=== PATIENT | male | born 1980 | race African-American/Black ===

== ENCOUNTER 2019-12-03 13:43 | Inpatient (IN) | payer OTHER ==
[~2019-12-03] VITALS: Ht 172.7 cm; Wt 63.6 kg
--- NOTE | 2019-12-03 13:55 | NUR ---
PATIENT TO ROOM VIA WHEELCHAIR WITH GUARDS AND PHHYSICIAN AT BEDSIDE FOR EVAL
--- NOTE | 2019-12-03 14:30 | NUR ---
PATIENT HARD STICK. ONLY ABLE TO OBTAIN 1 BLOOD CULTURE. MD NOTIFIED AND IS OK WITH HAVING 1 BLOOD CULTURE.
[2019-12-03 14:46] LABS: HEMATOCRIT 48.7 % (39.0-50.0); HEMOGLOBIN 15.3 g/dl (14.0-18.0); IMMATURE GRANULOCYTES 0.3 % (0.0-5.0); MEAN CELL VOLUME 84.5 fL CALC (80.0-100.0); MEAN CORPUSCULAR HGB 26.6 pG CALC (26.0-32.0); MEAN CORPUSCULAR HGB CONC 31.4 g/dL CAL (32.0-36.0); NEUT# 7.5 thou/uL (1.82-7.42); RED BLOOD COUNT 5.76 mill/uL (4.70-6.10); RED CELL DISTRI WIDTH 12.8 % (11.5-15.5)
[2019-12-03 15:06] LABS: ALBUMIN 4.2 g/dL (3.2-5.0); ALKALINE PHOSPHATASE 71 u/l (38-126); ANION GAP 18 (6-22 (CALC)); BILIRUBIN, TOTAL 0.5 mg/dL (0.0-1.4); BUN 24 mg/dL (9-20); BUN/CREATININE RATIO 24 (12-20 (CALC)); CARBON DIOXIDE 22 mmol/l (22-30); CHLORIDE 98 mmol/l (95-108); GFR > 60 ML/MIN (>=60 (CALC)); GFR FOR AFR.AMER. > 60 ML/MIN (>=60 (CALC)); POTASSIUM 3.9 mmol/l (3.5-5.1); SGOT/AST 38 u/l (17-59); SODIUM 133 mmol/l (137-146); TOTAL PROTEIN 7.8 g/dL (6.3-8.2)
--- NOTE | 2019-12-03 15:20 | NUR ---
IV ANTIBIOTICS INFUSING. IV SITE FREE FROM REDNESS/EDEMA. PATIENT UPDATED ON POSSIBLE ADMISSION. 2 GUARDS REMAIN AT BEDSIDE.
[2019-12-03] MEDS ORDERED: DOXYCYCL HYC100 MG PO (15:23)
[2019-12-03] MEDS ORDERED: KEFLEX500 MG PO (15:23)
[2019-12-03] MEDS ORDERED: IBUPROFEN600 MG PO (15:24)
[2019-12-03] MEDS ORDERED: HYDROCHLOROT25 MG PO (15:24)
[2019-12-03] MEDS ORDERED: ASPIRIN ADULT L81 M2 PO (15:24)
[2019-12-03] MEDS ORDERED: LISINOPRIL10 MG PO (15:24)
--- NOTE | 2019-12-03 16:10 | NUR ---
PATIENT REPORT ATTEMPTED TO CALL TO [facility] NURSE, THEY WILL CALL BACK.
--- NOTE | 2019-12-03 16:24 | NUR ---
PATIENT REPORT CALLED TO FANTA [facility]Y.
--- NOTE | 2019-12-03 16:25 | NUR ---
REPORT RECEIVED FROM NAVNEET TRAORE
--- NOTE | 2019-12-03 16:30 | NUR ---
COVID SWAB COLLECTED.
--- NOTE | 2019-12-03 16:35 | NUR ---
Admission Note Report Given to: MARCOS Transported by: X Wheelchair Stretcher Transported with: X Nurse Transporter X [employer] Location: ICU X MS2 PATIENT TO ROOM IN STABLE CONDITION.
--- NOTE | 2019-12-03 16:37 | NUR ---
PT ARRIVED TO MED/SURG ROOM 283 IN STABLE CONDITION VIA WHEELCHAIR ACCOMPANIED BY NAVNEET TRAORE AND X2 GUARDS;PT AMBULATED TO BEDSIDE WITH A WEAK GAIT AND 1 PERSON ASSIST;WT AND VS OBTAINED BY RUT RAMOS;PT REPORTS RLE EDEMA AND REDDENING SINCE Friday11/30/19;PT REPORTS RLE PAIN RATING 2/10 ON THE PAIN SCALE,PT TO BE MEDICATED WITH PRN TYLENOL 650MG PO;PT A&O X3, ORIENTED TO ROOM AND CALL LIGHT SYSTEM;RESPIRATIONS EVEN AND UNLABORED ON RA,CLEAR LUNG SOUNDS;PT TESTED POSITIVE FOR COVID19, PT EDUCATED ON RESULTS AND PLACED IN AIR/CONTACT PRECAUTIONS;ABDOMEN SOFT ON PALPATION AND ACTIVE IN ALL 4 QUADRANTS,LAST BM 12/02/19;STRONG LEFT PEDAL PULSE AND DOPPLERED RT PEDAL PULSE;RLE SWOLLEN WITH +3 EDEMA,REDDENING, AND WARM TO TOUCH;RLE PHOTO OBTAINED AND ELEVATED ON A PILLOW;#22G TO RIGHT HAND FLUSHED AND PATENT,SITE APPEARS HEALTHY;ALLERGY BAND APPLIED;PT DENIES ANY ADDITIONAL NEEDS AT THIS TIME AND IS ENCOURAGED TO CALL FOR ASSISTANCE IF NEEDED;FALL PRECAUTIONS IN PLACE WITH BED IN THE LOWEST POSITION AND CALL LIGHT IN REACH;WILL CONTINUE TO MONITOR
[2019-12-03 16:51] VITALS: BP 151/87
[2019-12-03 19:00] VITALS: BP 133/72
--- NOTE | 2019-12-03 21:14 | NUR ---
PT MEDICATED ORDERS PROVIDE AND ASSESSMENT COMPLETED AT THIS TIME. NO S/O DISTRESS NOTED. PT UP MOVING AROUND ROOM, STEADY GAIT. PT PROVIDED COFFEE PER REQUEST.
--- NOTE | 2019-12-04 00:16 | NUR ---
PT IN BED W/EYES CLOSED I ENTERED THE ROOM, GUARDS X2 AT BEDSIDE. NO S/O DISTRESS. IV ANTIBIOTIC ADMINISTERED AT THIS TIME AND TYLENOL FOR PAIN 06/17. PT DENIES ANY OTHER NEEDS. LIGHTS ARE OFF AND TV DOWN LOW.
--- NOTE | 2019-12-04 01:19 | NUR ---
PT UP WALKING AROUND ROOM AND BACK TO BED. NO S/O DISTRESS NOTED. CALL LIGHT AT SIDE.
--- NOTE | 2019-12-04 03:00 | NUR ---
Pt sleeping, no s/o distress noted. Guards @bedside x2.
[2019-12-04 04:00] VITALS: BP 134/73
[2019-12-04 05:48] LABS: IMMATURE GRANULOCYTES 0.3 % (0.0-5.0); MEAN CELL VOLUME 82.9 fL CALC (80.0-100.0); MEAN CORPUSCULAR HGB 26.6 pG CALC (26.0-32.0); MEAN CORPUSCULAR HGB CONC 32.1 g/dL CAL (32.0-36.0); NEUT# 6.11 thou/uL (1.82-7.42); RED BLOOD COUNT 4.92 mill/uL (4.70-6.10); RED CELL DISTRI WIDTH 12.9 % (11.5-15.5)
[2019-12-04 06:00] LABS: HEMATOCRIT 40.8 % (39.0-50.0); HEMOGLOBIN 13.1 g/dl (14.0-18.0)
[2019-12-04 06:09] LABS: BUN 17 mg/dL (9-20); BUN/CREATININE RATIO 18 (12-20 (CALC)); CHLORIDE 99 mmol/l (95-108); CREATININE 0.9 mg/dL (0.7-1.3); GFR > 60 ML/MIN (>=60 (CALC)); GFR FOR AFR.AMER. > 60 ML/MIN (>=60 (CALC)); POTASSIUM 3.8 mmol/l (3.5-5.1); SODIUM 134 mmol/l (137-146)
[2019-12-04 06:16] LABS: ANION GAP 12 (6-22 (CALC)); CARBON DIOXIDE 27 mmol/l (22-30)
[2019-12-04 08:01] VITALS: BP 118/75
--- NOTE | 2019-12-04 10:07 | NUR ---
PATIENT RESTING WITH TWO GUARDS AT BEDSIDE. PATIENT STATES PAIN IN LEG IN MINIMAL. REDNESS APPEARS TO BE GOING DOWN.
--- NOTE | 2019-12-04 12:28 | NUR ---
PATIENT RESTING IN BED WITH TWO GUARDS AT BEDSIDE. PATIENT HAS NO CONCERNS OR QUESTIONS AT THIS TIME. IV ABX GIVEN,
[2019-12-04 15:17] VITALS: BP 116/70
--- NOTE | 2019-12-04 16:02 | NUR ---
PATIENT RESTING WITH TWO GUARDS AT BEDSIDE. PATIENT SHOWERED AND COMFORTABLE AT THIS TIME. WILL REASSESS.
--- NOTE | 2019-12-04 18:07 | NUR ---
PATIENT RECIEVED DOSE OF IV ABX. PATIENT RT FOOT IS LESS SWOLLEN AND SKIN IS PEELING. PATIENT WAS CONCERNED THAT IT LOOKED DIFFERENT. NURSE EXPLAINED EDEMA AND THE HEALING PROCESS. PATIENT VERBALIZED UNDERSTANDING.
[2019-12-04 19:00] VITALS: BP 126/75
--- NOTE | 2019-12-04 19:35 | NUR ---
PT IN BED SHACKLED BY LEFT ANKLE TO BED. CIRCULATION CHECKED. RLE EDEMATOUS 3+ W/REDNESS, BUT SOME APPEARANCE OF IMPROVEMENT OF REDNESS FROM THIS AM. PT REPORTS THAT HE HAD PAIN WHILE GETTING A SHOWER, BUT THAT HE IS NOT HAVING ANY PAIN AT THIS TIME WHILE LAYING IN BED. NO S/O DISTRESS. LUNG SOUNDS ARE CLEAR. GUARDS X2 AT BEDSIDE. PT WAS OFFERED SNACK/DRINK AT THIS TIME/DENIED. ENCOURAGED GUARD AND PT TO CALL ANY NEEDS ARISE.
--- NOTE | 2019-12-04 20:06 | NUR ---
REPORT RECEIVED FROM RN. PT RESTING IN BED SUPINE; ASSESSMENT AND VITALS COMPLETE ALERT AND ORIENTED. PT DENIES PAIN. PT SHACKLED TO THE BED @ LEFT ANKLE. CIRCULATION GOOD. 2 GUARDS PRESENT IN PTS ROOM. PT RECIVING IV ANTIBIOTICS q6H. PT ENCOURAGED TO VERBALIZE CONCERNS. STATES UNDERSTANDING. SAFETY MEASURES IN PLACE. CALL LIGHT WITHIN REACH.
--- NOTE | 2019-12-05 00:05 | NUR ---
PATIENT RESTING SOUNDLY IN BED WITH EYES CLOSED AT THIS TIME. IV SITE PATENT FLUSHES WELL; SITE UNREMARKABLE. SHACKLED LEG HAS GOOD CIRCULATION. 2 GUARDS PRESENT. CALL MALDONADO WITHIN REACH. NO APPARENT DISTRESS NOTED. WILL CONTINUE TO MONITOR FOR ANY FURTHER CHANGES.
[2019-12-05 04:00] VITALS: BP 132/74
--- NOTE | 2019-12-05 05:12 | NUR ---
PHYSICAL ASSESSMENT REMAINS UNCHANGED FROM THE BEGINNING OF THE SHIFT. PT RESTING QIETLY WITH 2 GUARDS BEDSIDE AND NO STATED NNEDS OR REQUESTS. PERSONAL ITEMS AND CALL MALDONADO ARE WITHIN REACH. BED IS IN LOW POSITION W/BEDRAILS UP X2. PT AGREES TO CALL PRN.
--- NOTE | 2019-12-05 07:10 | NUR ---
REPORT RECEIVED FROM NAVNEET CORDOVA.
--- NOTE | 2019-12-05 08:00 | NUR ---
PT RESTING IN SEMI FOWLERS POSITION,A&O X3;X2 GUARDS AT BEDSIDE AND LEFT ANKLE SHACKLED TO BEDSIDE;VS OBTAINED AND ASSESSMENT COMPLETED;PT DENIES ANY CURRENT PAIN OR DISCOMFORTS,PAIN SCALE AND REPORTING EDUCATED;RESPIRATIONS EVEN AND UNLABORED ON RA,CLEAR LUNG SOUNDS;ABDOMEN SOFT ON PALPATION AND ACTIVE IN ALL 4 QUADRANTS;STRONG LEFT PEDAL PULSE;RT PEDAL PULSE DOPPLERED;RLE RED,SWOLLEN AND WARM TO TOUCH;RLE ELEVATED ON A PILLOW;#22G TO RIGHT HAND FLUSHED AND PATENT,SITE APPEARS HEALTHY;PT REMAINS IN AIR/CONTACT PRECAUTIONS;PT DENIES ANY ADDITIONAL NEEDS AT THIS TIME AND IS ENCOURAGED TO CALL FOR ASSISTANCE IF NEEDED;CALL LIGHT IN REACH;WILL CONTINUE TO MONITOR
[2019-12-05 08:02] VITALS: BP 122/68
--- NOTE | 2019-12-05 12:40 | NUR ---
PT RESTING IN SEMI FOWLERS POSITION WITH X2 GUARDS AT BEDSIDE AND LLE SHACKLED TO BEDSIDE;RESPIRATIONS EVEN AND UNLABORED ON RA;PT DENIES ANY CURRENT PAIN OR DISCOMFORTS;IV ABX STARTED AT THIS TIME TO RIGHT HAND, IV SITE DRESSING CHANGED AT THIS TIME DUE TO LEAKING;PT DENIES ANY ADDITIONAL NEEDS AT THIS TIME AND IS ENCOURAGED TO CALL FOR ASSISTANCE IF NEEDED;FALL PRECAUTIONS IN PLACE WITH CALL LIGHT IN REACH;WILL CONTINUE TO MONITOR
[2019-12-05 15:00] VITALS: BP 127/58; BP 131/84
--- NOTE | 2019-12-05 15:50 | NUR ---
PT RESTING IN SEMI FOWLERS POSITION WITH X2 GUARDS AT BEDSIDE AND LEFT LEG SHACKLED TO BEDSIDE;RESPIRATIONS EVEN AND UNLABORED ON RA;PT DENIES ANY CURRENT PAIN OR DISCOMFORTS;IV SITE PATENT;RLE ELEVATED ON A PILLOW;PT ENCOURAGED TO CALL FOR ASSISTANCE IF NEEDED;FALL PRECAUTIONS REMAIN IN PLACE WITH BED IN THE LOWEST POSITION AND CALL LIGHT IN REACH;WILL CONTINUE TO MONITOR
[2019-12-05 19:00] VITALS: BP 142/80
--- NOTE | 2019-12-05 20:38 | NUR ---
PT AWAKE IN LOW FOWLERS POSITION WITH GUARDS X2 AT BEDSIDE. DENIES ANY NEEDS AT THIS TIME. WILL FOLLOW-UP WITH ASSESSMENT AND MEDICATIONS ORDERED. INSTRUCTED PT TO CALL ANY NEEDS ARISE, CALL LIGHT IS WITHIN REACH OF THE PT.
--- NOTE | 2019-12-05 21:55 | NUR ---
PT IS IN BED WATCHING [employer] ON TV. NO S/O DISTRESS NOTED. PT REPORTS ONLY HAVING PAIN WHEN HE AMBULATES, BUT STATES THAT HE DOES NOT NEED PAIN MEDICATION AT THIS TIME. I ENCOURAGED PT TO CALL NEEDS ARISE OR IF HIS PAIN LEVEL RISES. DENIES NEED FOR SNACK, WATER IS AT BST. GUARDS X2 AT BEDSIDE. CIRCULATION CONFIRMED TO LLE WHERE SHACKLED TO BED AND TO RLE WHICH IS EDEMATOUS 2+ AND RED. WEAK PEDAL PULSE IN RLE. CALL LIGHT WITHIN REACH OF PT.
--- NOTE | 2019-12-06 00:05 | NUR ---
PT ANTIBIOTIC THERAPY ADMINISTERED AT THIS TIME. PT WAS SLEEPING, LIGHTS ARE ONE AND GUARDS PLAYING CARDS BETWEEN PT BED AND DOOR. I TURNED LIGHTS OFF FOR PT REST AND INFORMED THE GUARDS THAT THEY HAD PERSONAL LIGHTS OVERHEAD ON OTHER SIDE OF THE ROOM AND LEFT THE SINK OVERHEAD LIGHT ON FOR THEM, THEY VERBALIZED UNDERSTANDING. NO S/O DISTRESS W/PT AT THIS TIME.
[2019-12-06 04:00] VITALS: BP 152/83
--- NOTE | 2019-12-06 04:32 | NUR ---
IV SITE FLUSHED, V/S WERE JUST OBTAINED BY AIDE. PT DENIES ANY OTHER NEEDS.
[2019-12-06 07:36] VITALS: BP 133/75
--- NOTE | 2019-12-06 08:30 | NUR ---
PT. A&O X3. GUARD AT BEDSIDE AND SHACKLED TO BED. TO GET PICC LINE TODAY. RIGHT LOWER CELLULITIS SWOLLEN 3.5+ EDEME. WILL MONITOR.
--- NOTE | 2019-12-06 11:37 | NUR ---
S: ADRIANO WALKER is a 39 M who presents with cellulitis. He has a history of hypertension . All medications in patient's chart were reviewed. O: VS: BP 133/75 mmHg, P 97 bpm, RR 18 breaths per minute,T 97.2 F W 63.6 kg, HT 68 in, Scr=0.9 mg/dL, CrCl= 97.2 ml/min A: Blood culture is pending. P: Patient is on Zosyn 3.375 g IV Q6h. Vancomycin ordered for pharmacy to dose. Start Vancomycin 1250 mg IV Q12H. Vancomycin trough is drawn before the 4th dose on 12/07/19 at 2130. Vancomycin goal trough is between 10-15 mcg/ml. No labs have been drawn since 12/03, will ask provider to order CBC and BMP. Pharmacy will follow and or advise on antibiotics use as needed.
--- NOTE | 2019-12-06 12:00 | NUR ---
PT. ALERT AND ORIENTED X 3. SHACKLED TO BED WITH 2 GUARDS PRESENT. HAS RIGHT UPPER ARM PICC PATENT AND INTACT. IN NEGATIVE PRESSURE ROOM FOR ISOLATION. WILL MONITOR.
[2019-12-06 14:50] VITALS: BP 122/75
--- NOTE | 2019-12-06 18:13 | NUR ---
PT SEEN RESTING IN THE BED IN NO DISTRESS, EYES CLOSED. NEWLY PLACED PICC WORKING WELL.
[2019-12-06 19:00] VITALS: BP 137/70
--- NOTE | 2019-12-06 20:03 | NUR ---
REPORT RECEIVED FROM VESNA OLSEN. ASSESSMENT AND VITALS COMPLETED AT THIS TIME. RESPIRATIONS ARE NORMAL ON ROOM AIR. HEART RHYTHM SOUNDS ARE NORMAL. BOWEL SOUNDS ARE ACTIVE IN ALL QUADRANTS, LAST REPORTED BM 12/06/19. RADIAL AND PEDAL PULSES ARE STRONG WITH NORMAL CAPILLARY REFILL. SKIN IS INTACT WITH THE EXCEPTION OF RLL RED, HOT AND SWOLLEN WITH 2+ EDEMA. PT IS FROM [facility] AND HAS HIS LEFT LEG SHACKLED TO THE BED. 2 GUARDS ARE BEDSIDE. PT DENIES ANY PAIN OR ADDITIONAL NEEDS AT THIS TIME. ALL SAFETY PRECAUTIONS ARE IN PLACE WITH CALL LIGHT IN REACH. WILL CONTINUE TO MONITOR.
--- NOTE | 2019-12-06 21:00 | NUR ---
PT REQUESTED A COKE COLA. GLUCOSE AT 196. ASKED HER TO CONSIDER ANOTHER LESS SWEET BEVERAGE.
--- NOTE | 2019-12-07 00:03 | NUR ---
PT IS A/O X3. RESPIRATIONS EVEN AND UNLABORED WITH NO SIGNS OF DISTRESS NOTED. PT RECIEVING IV ANTIBIOTICS. IV SITE PATENT AND APPEARS HEALTHY. PT SHACKLED TO BED AT LEFT ANKLE. GOOD CIRCULATION NOTED. 2 GUARDS ARE IN PTs ROOM. ALL SAFETY PRECAUTIONS REMAIN IN PLACE WITH CALL LIGHT IN REACH. WILL CONTINUE TO MONITOR.
[2019-12-07 03:45] VITALS: BP 160/64
--- NOTE | 2019-12-07 04:03 | NUR ---
PT SEEN EYE CLOSED, IN NO APPARENT DISTRESS. CALL MALDONADO WITHIN REACH WILL CONTINUE TO MONITOR.
[2019-12-07 05:25] LABS: HEMATOCRIT 46.2 % (39.0-50.0); HEMOGLOBIN 14.4 g/dl (14.0-18.0); MEAN CELL VOLUME 85.2 fL CALC (80.0-100.0); MEAN CORPUSCULAR HGB 26.6 pG CALC (26.0-32.0); MEAN CORPUSCULAR HGB CONC 31.2 g/dL CAL (32.0-36.0); RED BLOOD COUNT 5.42 mill/uL (4.70-6.10); RED CELL DISTRI WIDTH 12.9 % (11.5-15.5)
[2019-12-07 05:54] LABS: ANION GAP 12 (6-22 (CALC)); BUN 14 mg/dL (9-20); BUN/CREATININE RATIO 15 (12-20 (CALC)); CARBON DIOXIDE 27 mmol/l (22-30); CHLORIDE 100 mmol/l (95-108); CREATININE 0.9 mg/dL (0.7-1.3); GFR > 60 ML/MIN (>=60 (CALC)); GFR FOR AFR.AMER. > 60 ML/MIN (>=60 (CALC)); MAGNESIUM 1.9 mg/dL (1.6-2.3); POTASSIUM 4.4 mmol/l (3.5-5.1); SODIUM 135 mmol/l (137-146)
[2019-12-07 08:00] VITALS: BP 134/77
--- NOTE | 2019-12-07 09:00 | NUR ---
PT SEEN AWAKE, ALERT, ORIENTED X 3. LUNGS CLEAR, RA. ABDOMEN SOFT, BENIGN, BM YESTERDAY. RLE SEEN WITH 2+ EDEMA, PAINFUL TO THE TOUCH. GUARDS X 2 AT BEDSIDE, SHACKLED TO BED LLE.
--- NOTE | 2019-12-07 13:00 | NUR ---
PT HAS BEEN TO CT ABDOMEN AND BACK. PT MINIMALLY AMBULATORY PER RIGHT LEG SWELLING AND PAIN. NO NOTED DISTRESS PT SEEN AT REST IN THE BED.
[2019-12-07 15:00] VITALS: BP 136/73
--- NOTE | 2019-12-07 17:03 | NUR ---
PT REMAINS BEFORE, NO CHANGE IN STATUS. THERE HAS BEEN DISCUSSION ABOUT TRANSFER TO [facility] IF CT ABD READING INDICATED NEEDED SURGERY, BUT THE TEST HAS NOT BEEN READ YET.
[2019-12-07 19:03] VITALS: BP 130/73
--- NOTE | 2019-12-07 20:04 | NUR ---
REPORT RECEIVED FROM VESNA OLSEN. ASSESSMENT AND VITALS COMPLETED AT THIS TIME. RESPIRATIONS ARE NORMAL ON ROOM AIR. HEART RHYTHM SOUNDS ARE NORMAL. BOWEL SOUNDS ARE ACTIVE IN ALL QUADRANTS, LAST REPORTED BM 12/07/19. RADIAL AND PEDAL PULSES ARE STRONG WITH NORMAL CAPILLARY REFILL. SKIN IS INTACT WITH THE EXCEPTION OF RLL RED, HOT AND SWOLLEN WITH 2+ EDEMA. PT IS FROM [facility] AND HAS HIS LEFT LEG SHACKLED TO THE BED. 2 GUARDS ARE BEDSIDE. PT DENIES ANY PAIN OR ADDITIONAL NEEDS AT THIS TIME. ALL SAFETY PRECAUTIONS ARE IN PLACE WITH CALL LIGHT IN REACH. WILL CONTINUE TO MONITOR.
--- NOTE | 2019-12-08 00:54 | NUR ---
PT SEEN AT REST IN THE BED, NO EVIDENCE OF DISTRESS. PT HAS RUE PICC RECEIVING NS [id number]. SITE IS PATENT WITH NO REDNESS OR SWELLING. LEFT ANKLE SHACKLED TO THE BED. 2 GUARDS BEDSIDE. CALL MALDONADO WITHIN REACH. WILL CONTINUE TO MONITOR.
--- NOTE | 2019-12-08 04:10 | NUR ---
PT SLEEPING, NO S/O DISTRESS NOTED. CALL LIGHT IS W/IN REACH.
[2019-12-08 04:40] VITALS: BP 134/78
[2019-12-08 04:55] LABS: HEMATOCRIT 39.1 % (39.0-50.0); HEMOGLOBIN 12.2 g/dl (14.0-18.0); MEAN CELL VOLUME 84.1 fL CALC (80.0-100.0); MEAN CORPUSCULAR HGB 26.2 pG CALC (26.0-32.0); MEAN CORPUSCULAR HGB CONC 31.2 g/dL CAL (32.0-36.0); RED BLOOD COUNT 4.65 mill/uL (4.70-6.10); RED CELL DISTRI WIDTH 12.8 % (11.5-15.5)
[2019-12-08 05:08] LABS: ANION GAP 8 (6-22 (CALC)); BUN 12 mg/dL (9-20); BUN/CREATININE RATIO 12 (12-20 (CALC)); CARBON DIOXIDE 30 mmol/l (22-30); CHLORIDE 101 mmol/l (95-108); GFR > 60 ML/MIN (>=60 (CALC)); GFR FOR AFR.AMER. > 60 ML/MIN (>=60 (CALC)); POTASSIUM 4.3 mmol/l (3.5-5.1); SODIUM 135 mmol/l (137-146)
[2019-12-08 07:44] VITALS: BP 137/88
--- NOTE | 2019-12-08 08:14 | NUR ---
PT. IN ISOLATION SHACKLED TO BED WITH 2 GUARDS. A&O X 3. ABLE TO VOICE NEEDS. REPORTS HAVING A BOWEL MOVEMENT THIS MORNING. NO COMPLAINTS VOICED. WILL MONITOR.
--- NOTE | 2019-12-08 12:00 | NUR ---
PT. STATES LESS DISCOMFORT TODAY DUE TO REDUCED SWELLING OF RIGHT LOWER LEG. WILL MONITOR.
[2019-12-08 15:00] VITALS: BP 127/74
--- NOTE | 2019-12-08 17:55 | NUR ---
PT. CONTINUES WITH NO MAJOR CHANGES. ANTICIPATING POSSIBLE DISCHARGE TOMORROW.
[2019-12-08 19:00] VITALS: BP 134/67
--- NOTE | 2019-12-08 21:00 | NUR ---
PT MEDICATED AND ASSESSMENT COMPLETED AT THIS TIME. PT REFUSED STOOL SOFTENER REPORTING RUNNY LOOSE STOOL EARLIER THIS AM. PT SHACKLED TO BED AT LEFT ANKLE W/GOOD CIRCULATION AND 2+EDEMA TO RLE. SLIGHT IMPROVEMENT VISIBLE FROM PREVIOUSLY OBSERVED. GUARDS X2 AT BEDSIDE. PT DENIES PAIN AT THIS TIME. COFFEE PROVIDED TO GUARD. PT DENIES ANY NEEDS. CALL LIGHT AT BEDSIDE.
--- NOTE | 2019-12-09 00:40 | NUR ---
PT MEDICATED ORDERS PROVIDE W/IV ANTIBIOTIC THERAPY. PT ASKED FOR URINAL TO BE EMPTIED, GUARD IS IN RESTROOM AND I WAS UNABLE TO EMPTY AT THIS TIME. WILL FOLLOW-UP TO FLUSH IV AND WILL EMPTY URINAL AT THAT TIME.
[2019-12-09 04:00] VITALS: BP 137/78
--- NOTE | 2019-12-09 04:50 | NUR ---
BLOOD DRAWN FOR LABS FROM PICC-LINE. FLUSHES PATENT AND HEP-LOCKED AT THIS TIME. PT DENIES ANY OTHER NEEDS. GUARDS X2 AT BEDSIDE.
[2019-12-09 05:31] LABS: HEMATOCRIT 39.9 % (39.0-50.0); HEMOGLOBIN 12.5 g/dl (14.0-18.0); MEAN CELL VOLUME 84.2 fL CALC (80.0-100.0); MEAN CORPUSCULAR HGB 26.4 pG CALC (26.0-32.0); MEAN CORPUSCULAR HGB CONC 31.3 g/dL CAL (32.0-36.0); RED BLOOD COUNT 4.74 mill/uL (4.70-6.10); RED CELL DISTRI WIDTH 12.8 % (11.5-15.5)
[2019-12-09 05:44] LABS: ANION GAP 9 (6-22 (CALC)); BUN 15 mg/dL (9-20); BUN/CREATININE RATIO 18 (12-20 (CALC)); CARBON DIOXIDE 31 mmol/l (22-30); CHLORIDE 101 mmol/l (95-108); CREATININE 0.8 mg/dL (0.7-1.3); GFR > 60 ML/MIN (>=60 (CALC)); GFR FOR AFR.AMER. > 60 ML/MIN (>=60 (CALC)); POTASSIUM 4.7 mmol/l (3.5-5.1); SODIUM 135 mmol/l (137-146)
--- NOTE | 2019-12-09 07:10 | NUR ---
REPORT RECEIVED FROM NAVNEET CORDOVA.
--- NOTE | 2019-12-09 08:46 | NUR ---
AT BEDSIDE DISCUSSING POC WITH PT.
[2019-12-09 08:47] VITALS: BP 153/81
--- NOTE | 2019-12-09 08:50 | NUR ---
PT RESTING IN SEMI FOWLERS POSITION WITH X2 GUARDS AT BEDSIDE AND LLE SHACKLED TO BEDSIDE, PT A&O X3;VS OBTAINED AND ASSESSMENT COMPLETED;PT DENIES ANY CURRENT PAIN OR DISCOMFORTS,PAIN SCALE AND REPORTING EDUCATED;RESPIRATIONS EVEN AND UNLABORED ON RA,CLEAR LUNG SOUNDS;ABDOMEN SOFT ON PALPATION AND ACTIVE IN ALL 4 QUADRANTS;WEAK LLE PEDAL PULSE AND DOPPLERED RT PEDAL PULSE;RLE REDDENED AND +2 EDEMA NOTED, ENCOURAGED ELEVATION OF RLE;EMANUEL SL PICCLINE FLUSHED AND PATENT,SITE APPEARS HEALTHY AND ABX STARTED AT THIS TIME;PT REMAINS IN AIR/CONTACT PRECAUTIONS DUE TO COVID 19 DX;PT DENIES ANY ADDITIONAL NEEDS AT THIS TIME AND IS ENCOURAGED TO CALL FOR ASSISTANCE IF NEEDED;FALL PRECAUTIONS IN PLACE WITH CALL LIGHT IN REACH;WILL CONTINUE TO MONITOR
--- NOTE | 2019-12-09 11:30 | NUR ---
PT RESTING IN SEMI FOWLERS POSITION WITH X2 GUARDS AT BEDSIDE AND LLE SHACKLED TO BEDSIDE;RESPIRATIONS REMAIN EVEN AND UNLABORED ON RA;PT DENIES ANY CURRENT PAIN OR NEEDS;RLE ELEVATED ON A PILLOW;EMANUEL PICCLINE PATENT;ASSESSMENT REMAINS UNCHANGED AT THIS TIME;PT ENCOURAGED TO CALL FOR ASSISTANCE IF NEEDED;FALL PRECAUTIONS IN PLACE WITH BED IN THE LOWEST POSITION AND CALL LIGHT IN REACH;WILL CONTINUE TO MONITOR
[2019-12-09 16:10] VITALS: BP 127/71
--- NOTE | 2019-12-09 16:40 | NUR ---
PT RESTING IN SEMI FOWLERS POSITION WITH X2 GUARDS AT BEDSIDE AND LLE SHACKLED TO BED;RESPIRATIONS EVEN AND UNLABORED ON RA;PT DENIES ANY CURRENT PAIN OR DISCOMFORTS;RLE REMAINS ELEVATED ON A PILLOW;EMANUEL PICCLINE FLUSHED AND PATENT,ABX STARTED AT THIS TIME;PT DENIES ANY ADDITIONAL NEEDS AND IS ENCOURAGED TO CALL FOR ASSISTANCE IF NEEDED;FALL PRECAUTIONS REMAIN IN PLACE WITH BED IN THE LOWEST POSITION AND CALL LIGHT IN REACH;WILL CONTINUE TO MONITOR
[2019-12-09 19:45] VITALS: BP 134/70
--- NOTE | 2019-12-09 20:20 | NUR ---
PT MEDICATED ORDERS PROVIDE AND ASSESSMENT COMPLETED AT THIS TIME. GUARDS X2 AT BEDSIDE.
[2019-12-10 05:12] VITALS: BP 116/61
--- NOTE | 2019-12-10 05:18 | NUR ---
BLOOD DRAWN FROM PICC LINE FOR LABS. PATENT, FLUSHED AND HEPLOCKED. PT DENIES ANY NEEDS. GUARDS X2 AT BEDSIDE.
[2019-12-10 06:36] LABS: HEMATOCRIT 41.3 % (39.0-50.0); MEAN CELL VOLUME 84.1 fL CALC (80.0-100.0); MEAN CORPUSCULAR HGB 26.5 pG CALC (26.0-32.0); MEAN CORPUSCULAR HGB CONC 31.5 g/dL CAL (32.0-36.0); RED BLOOD COUNT 4.91 mill/uL (4.70-6.10)
[2019-12-10 07:02] LABS: ANION GAP 11 (6-22 (CALC)); BUN 12 mg/dL (9-20); BUN/CREATININE RATIO 12 (12-20 (CALC)); CARBON DIOXIDE 31 mmol/l (22-30); CHLORIDE 99 mmol/l (95-108); GFR > 60 ML/MIN (>=60 (CALC)); GFR FOR AFR.AMER. > 60 ML/MIN (>=60 (CALC)); POTASSIUM 4.9 mmol/l (3.5-5.1); SODIUM 135 mmol/l (137-146)
[2019-12-10 08:30] VITALS: BP 133/78
--- NOTE | 2019-12-10 08:30 | NUR ---
RECIEVED REPORT FROM NAVNEET CORDOVA. PT RESTING IN SEMI FOLWERS POSITION WITH TWO GAURDS AT BEDSIDE. PT IS FROM [facility]. INTRODUCED SELF TO PT AND DISCUSSED POC. ASSESSMENT AND VITALS COMPLETED AT THIS TIME. BP 133/78, HR 65, O2 99% ON ROOM AIR RESPIRATIONS ARE EVEN AND UNLABORE DIWHT NO SIGNS OF DISTRESS NOTED. LUNG SOUNDS ARE CLEAR. HEART RHYTHM IS NORMAL. BOWEL SOUNDS ARE ACTIVE. LAST REPORTED BM 12/10/2019. RADIAL AND LEFT PEDLA PULSE STRONG.LEFT LEG SHACKLED TO BED. RIGHT LEG PRESENTS WITH 1+ EDEMA. SKIN APPEARS DRY. NO BREAKDOWN PRESENT. SIGNLE LUMEN PICC IN EMANUEL FLUSHED WITH GOOD BLOOD RETURN, SITE APPEARS EHALTHY AND PATENT. PT DENIES OF ANY PAIN OR DISCOMFORTS AT THIS TIME. ALL SAFETY PRECAUTIONS ARE IN PLACE. ISOLATION RECAUTIONS IN PLACE. WILL CONTINUE TO MONITOR
[2019-12-10] MEDS ORDERED: KEFLEX500 MG PO (12:13)
--- NOTE | 2019-12-10 12:32 | NUR ---
PT RESTING IN SEMI FOLWERS POSITION UPON ENTEIRNG ROOM. WRITTER INFORMED PT OF DISCHARGE PLANING. PT VERBAILZED UNDERSTANDING. PT REQUESTED SHOWER. IV COVERING APPLIED TO PICC LINE. AL SFAETY PRECAUTIONS ARE IN PLACE WIHT CALL LIGHT IN REACH. WILL [id number] TO MONITOR
--- NOTE | 2019-12-10 16:04 | NUR ---
PT RESTING IN SEMI FOLWERS POSITION WITH 2 GUARDS PRESENT AT BEDSIDE. RESPIRATIONS ARE EVEN AND UNLABORED WITH NO SIGNS OF DISTRESS NOTED. LEFT LEG SHACKLED TO BED. SKIN IS WARM AND DRY WITH NO BREAKDOWN. PT IS TO BE DISCHARGED BACK TO [facility] ONCE LAST DOSE OF ANTIBIOTIC IS FINISHED. ALL SFAETY AND ISOLATION PRECAUTIONS ARE IN PLACE. WILL CONTINUE TO MONITOR
[2019-12-10 16:32] VITALS: BP 126/72
--- NOTE | 2019-12-10 17:33 | NUR ---
EDUCATED PT ON DISCHARGE INSTRUCTIONS AND NEW MEDICATION KEFLEX. PT VERBAILZED UNDERSTANDING. PICCLINE WILL REMAIN IN PLACE. FINAL IV ANTIBIOTICS INFUSING AT THIS TIME. SIET APPEARS HEALTHY AND PATNET. ALL SFAETY PRECAUTIONS ARE IN PLACE. WILL CONTINUE TO MONITOR
--- NOTE | 2019-12-10 19:18 | NUR ---
Discharge instructions given. Patient verbalizes understanding of same. Discharged in stable condition via Wheelchair to Home with staff. All belongings sent with pt. PT DISHARGED BACK TO [facility] VIA WHELLCHAIR ACCOMPANIED BY GUARDS IN STABLE CONDITION. PT LEFT WITH ALL DISCHARGE INSTRUCTIONS AND NEW MEDICTAION KEFLEX.
--- NOTE | 2019-12-10 19:38 | NUR ---
REPORT CALLED TO MAIK RN AT [facility]. WRITTER INFORMED NURSE THAT THERE WAS ORDERS FOR PT TO GO BACK TO FACILITY WITH PICC LINE. NURSE INFORMED WRITTER THAT PRISIONERS ARE NOT BE SENT BACK WITH PICCLINES. WRITTER INFORMED NURSE THAT THERE WAS NO ORDERS TO REMOVED. NURSE STATED "IT NEEEDS TO BE REMOVED PRIOR TO BEING SENT BACK". WRITTER INFORMED NURSE THAT PT HAS ALREADY LEFT HOSPITAL AND NO ORDERS WERE GIVEN TO REMOVED.NURSE STATED " WE ARE JUST GOING TO SENT HIM BACK TO GET IT REMOVED." SINTERING PRESS OPERATOR NOTIFIED.
== END 2019-12-10 19:09 | DRG 603 ==
LOC: ED 13:43 → ED-I 15:24 → ED 15:35 → MS2 15:36
PROVIDERS: Emergency Medicine; Nurse Practitioner; ADMIT Internal Medicine; ATTEND Internal Medicine
PROC: 05H933Z Insertion of Infusion Device into Right Brachial Vein, Percutaneous Approach (ICD-10-PCS; principal; 2019-12-06)
DX: L03.115 Cellulitis of right lower limb (principal); R76.8 Other specified abnormal immunological findings in serum; I10 Essential (primary) hypertension; B35.1 Tinea unguium
CPT/HCPCS: G0378; J1650; J3370; Q3014; Q9967